=== PATIENT | female | born 1980 | race Caucasian/White ===

== ENCOUNTER 2023-04-12 10:54 | Outpatient (AMB) | payer OTHER, SELFPAY ==
--- NOTE | 2023-04-12 10:59 | A.OFFPC_ITS ---
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 Transferring care from unknown. Medical records have not been requested and have not received. Service Order Dispatcher Chief Required: No Neurology Specialist: Not Required per policy Accompanied by: Self / Same As Patient Allergies No Known Allergies [No Known Allergies*] Allergy (Verified 04/12/23 11:15) Medication List - Last Reconciled 04/12/23 by RONNY Andrade No Known Home Meds Tobacco use date assessed: 04/12/23 Dental Screening Dental Screen Date: 04/12/23 Did you have a dental visit in the last 12 months?: Yes Did you have a dental problem in the last 6 months where you did not have access to dental care?: No Was dental information given to patient?: Patient has dentist HPI HPI Comments History of Present Illness Details 42-year-old female new patient presents today for physical exam. Patient states hx back pain but otherwise no significant medical or surgical history. Eye Exam: 3 years ago, recommended every couple of years Mammogram: ordered Pap Smear: A few years ago, referral entered. Patient reports has immunization records at home and she will bring a copy to office. Previous PCP: [facility] a few years ago, does not remember the name and states only went for 1 visit. 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 1. Little interest or pleasure in doing things: not at all 2. Feeling down, depressed, or hopeless: not at all 3. Trouble falling or staying asleep, or sleeping too much: not at all 4. Feeling tired or having little energy: not at all 5. Poor appetite or overeating: not at all 6. Feeling bad about yourself - or that you are a failure or have let yourself or your family down: not at all 7. Trouble concentrating on things, such as reading the newspaper or watching television: not at all 8. Moving or speaking so slowly that other people could have noticed. Or the opposite - being so fidgety or restless that you have been moving around a lot more than usual: not at all 9. Thoughts that you would be better off or of hurting yourself in some way: not at all Total score: 0 Depression Screening Interpretation: Negative 82228 - PHQ-9 Billing: Yes Source: Developed by Drs. Corby Johnson, Aleida San, Frandy Zamora and colleagues, with an educational papo from [employer]. Thrive Questionnaire Date Thrive assessed: 04/12/23 I am a: Patient What is your living situation today?: I have a steady place to live Within the past 12 months, did the food you bought not last and you didn't have the money to get more?: Never true Within the past 12 months, did you worry whether your food would run out before you got money to buy more?: Never true Do you have trouble paying for medicines?: No Do you have trouble getting transportation to medical appointments?: No Do you have trouble paying your heating and electricity bill?: No Do you have trouble taking care of your child, family member or friend?: No Do you have trouble with day-to-day activities such as bathing, preparing meals, shopping, managing finances, etc.?: No Are you currently unemployed and looking for a job?: No Are you interested in more education?: No Currently or been in a relationship where the following occur: no concerns reported AUDIT C Alcohol Use Questionnaire (AUDIT-C) 1. How often do you have a drink containing alcohol?: Never Total Score: 0 BILL-7 AMB Questionnaire BILL-7 Date BILL - 7 assessed: 04/12/23 Feeling nervous, anxious, or on edge: 0 = Not at all Not being able to stop or control worryin = Not at all Worrying too much about different things: 0 = Not at all Trouble relaxin = Not at all Being so restless that it is hard to sit still: 0 = Not at all Becoming easily annoyed or irritable: 0 = Not at all Feeling afraid as if something awful might happen: 0 = Not at all Total BILL-7 score (0-4 normal; 5-9 mild; 10-14 moderate; 15-21 severe): 0 Source: Developed by Drs. Corby Johnson, Aleida San, Frandy Zamora and colleagues, with an educational papo from [employer]. BILL-7 Assessment Billing BILL-7 Assessment Tool: IBLL-7 Assessment 02878 Review of Systems Const Denies chills, Denies fatigue, Denies fever(s) and Denies poor appetite Eyes Denies no additional complaints ENT Reports Normal hearing present Card Denies chest pain, Denies syncope, Denies rapid heart rate and Denies dyspnea Resp Denies cough and Denies dyspnea GI Denies change in stool character, Denies constipation, Denies diarrhea, Denies nausea and Denies vomiting Denies urinary frequency, Denies dysuria and Denies urinary urgency Neuro Reports Normal hearing present, Denies confusion and Denies syncope Psych Denies confusion Endo Denies fatigue Physical exam (Primary Care) Vital Signs: Last Vital Signs Pulse 70 04/12/23 11:02 BP 112/70 04/12/23 11:02 Pulse Ox 100 04/12/23 11:02 Oxygen Delivery Method Room Air 04/12/23 11:02 BMI result Body Mass Index 27.1 Tobacco/Smoking Status: Tobacco use Status Tobacco use date assessed 04/12/23 04/12/23 11:10 Patient Tobacco Use Status Never used Tobacco 04/12/23 11:10 e-Cigarette/Vaping Use Never Used 04/12/23 11:10 PHQ-9: PHQ-9 Score PHQ-9: Total score 0 04/12/23 11:20 Depression Screening Interpretation: Negative Thrive Assessment: Date of Thrive Assessment Date Thrive assessed 04/12/23 04/12/23 11:10 Currently or been in a relationship where the following occur: no concerns reported Const General: No confusion Orientation/consciousness: No confusion HENMT Head: Yes normocephalic and Yes atraumatic Ears: external ears normal and TM's normal bilaterally General nose exam: Normal external nose present and Normal nasal mucous membranes and turbinates present Face and sinus: Yes normal facial exam and Yes sinuses nontender Mouth: moist mucous membranes Throat: Yes tonsils normal Eyes Conjunctivae: conjunctivae normal Sclerae: sclerae normal Pupils: Equal, round and reactive pupils present and Pupils normal by confrontation EOM: EOMs intact bilaterally Direct Ophthalmoscopy: normal light reflex Neck Neck: Yes no lymphadenopathy and Yes supple Thyroid: Thyroid normal Chest Chest palpation & inspection: normal inspection of the chest Resp Effort & Inspection: normal respiratory effort Auscultation: clear to auscultation bilaterally, no crackles, no rhonchi and no wheezes Cardio Rate: regular rate Rhythm: regular rhythm Peripheral pulses: radial pulses present and dorsalis pedis present GI Inspection: Yes normal to inspection Palpation (GI): Soft to palpation, nontender and No hepatosplenomegaly present Auscultation: normoactive bowel sounds Skin General skin exam: no rashes or lesions noted Neuro General: No confusion Cranial nerves: Yes Equal, round and reactive pupils present and Yes Normal hearing present Cognition (Neuro): normal cognition Gait exam (Neuro): Normal gait present Motor exam (neuro): 5/5 motor strength present throughout Deep tendon reflexes (DTR's): Right brachioradialis reflex intensity grade: 2+, Left brachioradialis reflex intensity grade: 2+, Right patellar reflex intensity grade: 2+ and Left patellar reflex intensity grade: 2+ Extrem General: No edema Assessment and Plan Assessment & Plan (1) Physical exam, annual: Code(s): Z00.00 - Encounter for general adult medical examination without abnormal findings Plan: Follow up in 1 year Plan Follow up in 1 year or sooner if needed. Orders: Orders Complete Blood Count Auto Diff Today Z13.0 - Encounter for screening for dis eases of the blood and blood-forming organs and certain disorders involving the immune mechanism Lipid Panel Today Z13.220 - Encounter for screening for lipoid disorders TSH reflex Free T4 Today Z13.29 - Encounter for screening for other suspected endocrine disorder Comprehensive [place]. 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
[2023-04-12 11:02] VITALS: BP 112/70; PULSE 70; O2SAT 100; BMI 27.1
== END 2023-04-12 11:29 | disposition home or self-care (01) ==
PROVIDERS: PCP Nurse Practitioner Family; Visit Provider Nurse Practitioner Family
DX: Z00.00 Encounter for general adult medical examination without abnormal findings (principal)
CPT/HCPCS: 99386

== ENCOUNTER 2023-04-14 07:54 | Outpatient (REF) | payer OTHER, SELFPAY ==
[2023-04-14 08:27] LABS: MANUAL DIFF FLAG NO
[2023-04-14 08:45] LABS: Basophils Percent Auto 0.4 % (0-2); Eosinophils Absolute Auto 0.1 X10*3/uL (0.0-0.4); Eosinophils Percent Auto 1.8 % (0-4); Hematocrit 38.8 % (37.0-47.0); Hemoglobin 13.2 g/dl (12.0-16.0); Imm Gran Abs Auto 0.02 X10*3/uL (0.00-0.03); Imm Gran Pct Auto 0.3 % (0.0-0.4); Lymphocytes Absolute Auto 2.1 X10*3/uL (1.2-4.9); Lymphocytes Percent Auto 26.4 % (20-40); Mean Corpuscular Hemoglobin 28.2 pg (27.0-33.0); Mean Corpuscular Volume 82.9 fL (80.0-98.0); Mean Platelet Volume 9.4 fL (9.4-12.3); Monocytes Absolute Auto 0.5 X10*3/uL (0.1-1.2); Monocytes Percent Auto 6.8 % (2-11); Neutrophils Percent Auto 64.3 % (45-73); Platelet Count 337 X10*3/uL (160-400); Red Blood Count 4.68 X10*6/uL (4.20-5.50); Red Cell Distribution Width 14.1 % (11.0-16.0); White Blood Count 7.8 X10*3/uL (4.8-10.8)
[2023-04-14 09:19] LABS: Alanine Aminotransferase 12 U/L (0-31); Albumin Level 4.2 g/dL (3.5-5.0); Alkaline Phosphatase 52 U/L (39-117); Anion Gap 10 (12-20); Aspartate Amino Transferase 12 U/L (5-31); Bilirubin Total 0.8 mg/dL (0.0-1.0); Blood Urea Nitrogen 11 mg/dL (9-16); Calcium 9.6 mg/dL (8.4-10.2); Carbon Dioxide 26 mmol/L (22-29); Chloride 109 mmol/L (96-108); Cholesterol 149 mg/dL (<200); Estimated Glomerular Filt Rate > 60; Glucose Fasting 115 mg/dL (60-99); HDL Cholesterol 31 mg/dL (>40); LDL Cholesterol Calculated 102 mg/dL (<100); Potassium 4.4 mmol/L (3.3-5.1); Sodium 141 mmol/L (135-145); Total Protein 7.4 g/dL (6.5-8.0); Triglycerides 80 mg/dL (<150)
[2023-04-14 09:49] LABS: TSH reflex Free T4 1.46 uIU/mL (0.32-4.0); Vitamin D 25-OH Total 19.2 ng/mL (>30)
== END 2023-04-14 07:55 | disposition home or self-care (01) ==
LOC: HO.LAB 07:54
PROVIDERS: PCP Nurse Practitioner Family; Visit Provider Nurse Practitioner Family
DX: Z13.220 Encounter for screening for lipoid disorders (principal); Z13.29 Encounter for screening for other suspected endocrine disorder; Z13.21 Encounter for screening for nutritional disorder; Z13.0 Encounter for screening for diseases of the blood and blood-forming organs and certain disorders involving the immune mechanism
CPT/HCPCS: 36415; 80053; 80061; 82306; 84443; 85025

== ENCOUNTER 2024-04-16 08:54 | Outpatient (AMB) | payer OTHER, SELFPAY ==
--- NOTE | 2024-04-16 08:55 | A.OFFPC_ITS ---
Vital Signs 04/16/24 08:56 Height 5 ft 1 in Weight 141 lb BMI 26.6 BP 130/70 Blood Pressure Location Lt brachial Position Sitting Pulse 72 Pulse Source Pulse Oximeter Pulse Oximetry (%) 98 Oxygen Delivery Method Room Air Intake Visit Reasons: Transfer of Care From [facility] /Annual Exam Intake Note: Patient is here today for a physical and 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 Required: No Technician Support Association: Not Required per policy Accompanied by: Self / Same As Patient Allergies No Known Allergies [No Known Allergies*] Allergy (Verified 04/16/24 09:56) Medication List - Last Reconciled 04/16/24 by Kirt Storm MD No Known Home Meds Tobacco use date assessed: 04/16/24 Dental Screening Dental Screen Date: 04/16/24 Did you have a dental visit in the last 12 months?: No Did you have a dental problem in the last 6 months where you did not have access to dental care?: No Was dental information given to patient?: Patient has dentist HPI Transfer of Care From [facility] /Annual Exam HPI Details 43-year-old female presents to the offic e to discuss her medical condition. I will be assuming her care as her provider has left the practice. Patient is a . She is complaining of intermittent low back pain for the past many years. 1-2 episodes in a week. Lower back pain radiating into the leg. Episodes are self-limiting and lasts about 3 hours. No associated urinary incontinence. Able to function and do all activities of daily living. 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 Patient occasionally feels extra heartbeats. No associated diaphoresis, shortness of breath. 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 1. Little interest or pleasure in doing things: not at all 2. Feeling down, depressed, or hopeless: not at all 3. Trouble falling or staying asleep, or sleeping too much: not at all 4. Feeling tired or having little energy: not at all 5. Poor appetite or overeating: not at all 6. Feeling bad about yourself - or that you are a failure or have let yourself or your family down: not at all 7. Trouble concentrating on things, such as reading the newspaper or watching television: not at all 8. Moving or speaking so slowly that other people could have noticed. Or the opposite - being so fidgety or restless that you have been moving around a lot more than usual: not at all 9. Thoughts that you would be better off or of hurting yourself in some way: not at all Total score: 0 Depression Screening Interpretation: Negative Depression Screening Done: Yes Source: Developed by Drs. Corby Johnson, Aleida San, Frandy Zamora and colleagues, with an educational papo from [employer]. Thrive Questionnaire Date Thrive assessed: 04/10/24 I am a: Patient What is your living situation today?: I have a steady place to live Within the past 12 months, did the food you bought not last and you didn't have the money to get more?: Never true Within the past 12 months, did you worry whether your food would run out before you got money to buy more?: Never true Do you have trouble paying for medicines?: No Do you have trouble getting transportation to medical appointments?: No Do you have trouble paying your heating and electricity bill?: No Do you have trouble taking care of your child, family member or friend?: No Do you have trouble with day-to-day activities such as bathing, preparing meals, shopping, managing finances, etc.?: No Are you currently unemployed and looking for a job?: No Are you interested in more education?: Yes Currently or been in a relationship where the following occur: No concerns reported THRIVE Score: 0 AUDIT C Alcohol Use Questionnaire (AUDIT-C) 1. How often do you have a drink containing alcohol?: Never Total Score: 0 BILL-7 AMB Questionnaire BILL-7 Date BILL - 7 assessed: 04/16/24 Feeling nervous, anxious, or on edge: 0 = Not at all Not being able to stop or control worryin = Not at all Worrying too much about different things: 0 = Not at all Trouble relaxin = Not at all Being so restless that it is hard to sit still: 0 = Not at all Becoming easily annoyed or irritable: 0 = Not at all Feeling afraid as if something awful might happen: 0 = Not at all Total BILL-7 score (0-4 normal; 5-9 mild; 10-14 moderate; 15-21 severe): 0 Source: Developed by Drs. Corby Johnson, Aleida San, Frandy Zamora and colleagues, with an educational papo from [employer]. Physical exam (Primary Care) Vital Signs: Last Vital Signs Pulse 72 04/16/24 08:56 BP 130/70 04/16/24 08:56 Pulse Ox 98 04/16/24 08:56 Oxygen Delivery Method Room Air 04/16/24 08:56 Care Plan Goal for BP management: Blood pressure is in range. BMI result Body Mass Index 26.6 Tobacco/Smoking Status: Tobacco use Status Tobacco use date assessed 04/16/24 04/16/24 09:01 Patient Tobacco Use Status Never used Tobacco 04/16/24 09:01 e-Cigarette/Vaping Use Never Used 04/16/24 09:01 PHQ-9: PHQ-9 Score PHQ-9: Total score 0 04/16/24 09:01 Depression Screening Interpretation: Negative Thrive Assessment: Date of Thrive Assessment Date Thrive assessed 04/10/24 04/16/24 09:01 Currently or been in a relationship where the following occur: No concerns repor shannon Const General: cooperative and healthy appearing Nutritional Appearance: well nourished Orientation/consciousness: patient oriented x3 Limitations: no limitations HENMT Head: Yes normal to inspection Eyes General: appearance normal, both eyes and all related structures Neck Neck: Yes normal visual inspection Chest Chest palpation & inspection: normal palpation of entire chest wall Resp Effort & Inspection: normal respiratory effort Neuro General: patient oriented x3 Office Procedures EKG Details: NSR [id number], Complete Assessment and Plan Assessment & Plan (1) Back pain: Code(s): M54.9 - Dorsalgia, unspecified Plan: Physical therapy appointment suggested. Patient was advised to do stretching exercises every day. (2) Elevated fasting glucose: Code(s): R73.01 - Impaired fasting glucose Plan: Blood work has been ordered. Will call with results. Screening mammogram has been ordered. Orders: Orders AMB EKG-In Office Today R00.2 - Palpitations Basic Metabolic Panel Today M54.9 - Dorsalgia, unspecified, R73.01 - Impaired fasting glucose Lipid Panel Today M54.9 - Dorsalgia, unspecified, R73.01 - Impaired fasting glucose PT Evaluation and Treatment Today M54.9 - Dorsalgia, unspecified Liver Panel Today M54.9 - Dorsalgia, unspecified, R73.01 - Impaired fasting glucose Thyroid Stimulating Hormone Today M54.9 - Dorsalgia, unspecified, R73.01 - Impaired fasting glucose UA and rflx microscopic Today M54.9 - Dorsalgia, unspecified, R73.01 - Impaired fasting glucose Complete Blood Count no Diff Today M54.9 - Dorsalgia, unspecified, R73.01 - Impaired fasting glucose MM screening mammo BI Today Z12.31 - Encounter for screening mammogram for malignant neoplasm of breast Coding Level of Care Code Est Pt Level 4 (11862) Diagnoses Back pain M54.9 Elevated fasting glucose R73.01 CPT Codes EKG - CPT: 35222-[id number], Complete ([id number])
[2024-04-16 08:56] VITALS: BP 130/70; PULSE 72; O2SAT 98; BMI 26.6
== END 2024-04-16 10:00 | disposition home or self-care (01) ==
PROVIDERS: PCP Internal Medicine; Visit Provider Internal Medicine
DX: M54.9 Dorsalgia, unspecified (principal); R73.01 Impaired fasting glucose
CPT/HCPCS: 93000; 99214